=== PATIENT | female | born 1970 | race African-American/Black ===

== ENCOUNTER 2016-10-13 17:04 | Emergency (ER) | payer OTHER ==
[~2016-10-13] VITALS: Ht 165.1 cm; Wt 78.5 kg
[~2016-10-13 17:04] MED LIST: ATARAX25 MG ORAL; CIPRO500 MG PO; DIPHENHYDRAMINE25 M1 ORAL; HYDROCORTISONE28 G5 TP; IBUPROFEN600 MG ORAL; KEFLEX500 MG ORAL; NKM; NORCO 5-325 TA1 EACH ORAL; PREDNISONE20 MG ORAL; PREDNISONE50 MG ORAL; PROVENTIL *; TRAMADOL HCL50 MG ORAL
[2016-10-13 17:37] VITALS: BP 132/86
[2016-10-13] MEDS ORDERED: PredniSONE 20mg tab ORAL ONE (17:45)
[2016-10-13] MEDS ORDERED: ATARAX25 MG ORAL (18:17)
[2016-10-13] MEDS ORDERED: PREDNISONE20 MG ORAL (18:17)
[2016-10-13 18:46] VITALS: BP 132/86
--- NOTE | 2016-10-15 07:38 | Emergency Room Report ---
History of Present Illness General Chief Complaint: General Complaint Source: Patient Present Illness HPI Patient is a 46 female presented after having left-sided facial swelling as well as extremity swelling. The patient noticed acute onset of itching to the left side her face as well as to her right leg. Patient had reported being bitten by a spider. She denies any fever. She reported having moderate itching to the area. Allergies: Coded Allergies: ERYTHROMYCIN BASE (Verified Allergy, Unknown, 02/23/14) Patient History Past Medical History: see triage record Now: No Reviewed Nursing Documentation: PMH: Agreed, PSxH: Agreed Nursing Documentation-PMH Past Medical History: No History, Except For Hx Hypertension: Yes Hx Asthma: Yes Review of Systems All Other Systems: negative except mentioned in HPI Physical Exam Vital Signs Date Time Temp Pulse Resp B/P Pulse Ox O2 Delivery O2 Flow Rate FiO2 10/13/16 17:15 98.1 89 15 136/83 98 Room Air General Appearance: well appearing, no apparent distress, alert, GCS 15, non- toxic Head: normocephalic, atraumatic ENT: hearing grossly normal, normal voice Neck: full range of motion, supple Respiratory: no respiratory distress, speaking full sentences Cardiovascular #1: normal inspection, normal peripheral pulses Gastrointestinal: normal inspection, normal bowel sounds, non tender Musculoskeletal: normal inspection, back normal, no calf tenderness Neurologic: normal inspection, alert, oriented x3, responsive, motor vehicle clerk III-XII nml as tested, normal gait Psychiatric: mood/affect normal Skin: other - swelling to left side of face, right leg no erythema Medical Decision Making Diagnostic Impression: Primary Impression: Insect bite - wound Additional Impression: Allergic reaction ER Course Patient presented for skin rash. Differential diagnosis included wasn't limited to cellulitis, allergic reaction, insect bite, angioedema, erythema multiforme. Patient's benign exam and does not appear to require any further imaging or laboratory testing at this time. The patient was given prednisone as well as H2 mari. The patient is advised to follow up with primary care doctor in 1-2 days. Patient is advised to return if any worsening condition or if any changes in status that are concerning. Last Vital Signs Date Time Temp Pulse Resp B/P Pulse Ox O2 Delivery O2 Flow Rate FiO2 10/13/16 18:46 98.3 92 17 132/86 99 Room Air Status: improved Disposition: HOME, SELF-CARE Condition: Stable Scripts Hydroxyzine HCl (Hydroxyzine HCl) 25 Mg Tablet 25 MG ORAL FOUR TIMES A DAY, #30 TAB Prov: Gavin Vences 10/13/16 Prednisone* (PREDNISONE*) 20 Mg Tablet 60 MG ORAL DAILY, #12 TAB Prov: Gavin Vences 10/13/16 Referrals: [facility] [place] (PCP) Patient Instructions: Insect Bite Gavin Vences Oct 15, 2016 07:38
== END 2016-10-13 19:30 | disposition home or self-care (01) ==
LOC: EMR 19:10
DX: S00.86XA Insect bite (nonvenomous) of other part of head, initial encounter (principal); T78.40XA Allergy, unspecified, initial encounter; I10 Essential (primary) hypertension; J45.909 Unspecified asthma, uncomplicated; Z88.1 Allergy status to other antibiotic agents; W57.XXXA Bitten or stung by nonvenomous insect and other nonvenomous arthropods, initial encounter; Y92.9 Unspecified place or not applicable; Y99.8 Other external cause status
CPT/HCPCS: 81025; 99282

== ENCOUNTER 2017-06-27 21:28 | Emergency (ER) | payer BC, OTHER ==
[~2017-06-27] VITALS: Ht 165.1 cm; Wt 81.6 kg
[2017-06-27] MEDS ORDERED: ATIVAN0.5 MG ORAL (22:21)
--- NOTE | 2017-06-27 22:22 | Emergency Room Report ---
History of Present Illness General Chief Complaint: General Complaint Source: Patient Present Illness HPI Is a 47-year-old female with history hypertension. Her Dr. taken off of blood pressure medication because her blood pressures been normal. Patient resides with chief complaint of headache blurry vision. She is under a lot of stress lately. Complaining of feeling sad because her mom around this time last year. Unable to sleep much. No fever chills. no nausea vomiting. She thought that her blood pressure may be elevated. Allergies: Coded Allergies: ERYTHROMYCIN BASE (Verified Allergy, Unknown, 02/23/14) Patient History Past Medical History: see triage record, old chart reviewed Past Surgical History: other Pertinent Family History: none Social History: Denies: smoking Last Menstrual Period: 06/12/17 Now: No Reviewed Nursing Documentation: PMH: Agreed, PSxH: Agreed Nursing Documentation-PMH Past Medical History: No History, Except For Hx Hypertension: Yes Hx Asthma: Yes Review of Systems Eye: Denies: eye pain, blurred vision ENT: Denies: ear pain, nose congestion, throat swelling Respiratory: Denies: cough, shortness of breath Cardiovascular: Denies: chest pain, palpitations Gastrointestinal: Denies: abdominal pain, diarrhea, nausea, vomiting Musculoskeletal: Denies: back pain, joint pain Skin: Denies: rash Neurological: Denies: headache, numbness Endocrine: Denies: increased thirst, increased urine Hematologic/Lymphatic: Denies: easy bruising All Other Systems: negative except mentioned in HPI Physical Exam Vital Signs Date Time Temp Pulse Resp B/P (MAP) Pulse Ox O2 Delivery O2 Flow Rate FiO2 06/27/17 21:32 97.9 85 17 153/97 98 Room Air vitals with slight elevation of high blood pressure Sp02 EP Interpretation: reviewed, normal General Appearance: well appearing, no apparent distress, alert Head: normocephalic, atraumatic Eyes: bilateral eye PERRL, bilateral eye EOMI ENT: hearing grossly normal, normal pharynx Neck: full range of motion, supple, no meningismus Respiratory: chest non-tender, lungs clear, normal breath sounds Cardiovascular #1: regular rate, rhythm, no murmur Gastrointestinal: normal bowel sounds, non tender, no mass, no organomegaly, no bruit, non-distended Musculoskeletal: back normal, gait/station normal, normal range of motion Psychiatric: anxious - Crying Skin: warm/dry Medical Decision Making Diagnostic Impression: Primary Impression: Stress and adjustment reaction ER Course Patient with elevated blood pressure secondary to stress reaction. No evidence of suicidal thoughts or homicidal thought. No fracture 5150. No evidence of end organ damage. We'll discharge home. Last Vital Signs Date Time Temp Pulse Resp B/P (MAP) Pulse Ox O2 Delivery O2 Flow Rate FiO2 06/27/17 21:32 97.9 85 17 153/97 98 Room Air Status: improved Disposition: HOME, SELF-CARE Condition: Stable Scripts Lorazepam* (ATIVAN*) 0.5 Mg Tablet 0.5 MG ORAL THREE TIMES A DAY, #30 TAB Prov: WILMER DELEON M.D. 06/27/17 Referrals: JOSÉ ANTONIO CARTY M.D. (PCP) Additional Instructions: Followup with your DrDarius in 7 days. Return if symptom worsen. WILMER DELEON M.D. Jun 27, 2017 22:22
[2017-06-27 22:26] VITALS: BP 153/97
== END 2017-06-27 22:27 | disposition home or self-care (01) ==
LOC: EMR 21:57
DX: F43.29 Adjustment disorder with other symptoms (principal); I10 Essential (primary) hypertension; J45.909 Unspecified asthma, uncomplicated
CPT/HCPCS: 99283

== ENCOUNTER 2017-08-30 11:27 | Emergency (ER) | payer BC ==
[~2017-08-30] VITALS: Ht 165.1 cm; Wt 81.6 kg
[~2017-08-30 11:27] MED LIST changes: +ATIVAN0.5 MG ORAL
[2017-08-30] MEDS ORDERED: ALBUTEROL2.5 MG/3 M INH (11:39)
[2017-08-30] MEDS ORDERED: Sodium Chloride 500ML 500 ML IV ONE (11:48)
[2017-08-30] MEDS ORDERED: Morphine Sulfate 4mg/ml Inj IVP ONE (12:00)
[2017-08-30] MEDS ORDERED: Albuterol ud Inhalation HHN ONE ×2 (12:00→13:30)
[2017-08-30] MEDS ORDERED: LORazepam Inj 2mg/ml 1ml IV ONE (12:00)
[2017-08-30] MEDS ORDERED: Ipratropium 0.02% Inh Soln 2.5ml UD HHN ONE ×2 (12:00→13:30)
[2017-08-30] MEDS ORDERED: Solu-MEDROL 125mg Inj IVP ONE (12:00)
[2017-08-30 12:40] LABS: ANION GAP 9 mmol/L (5-15); CALCIUM 8.9 MG/DL (8.5-10.1); CARBON DIOXIDE 26 MMOL/L (21-32); CHLORIDE 103 MMOL/L (98-107); CREATININE 0.8 MG/DL (0.55-1.30); GLOMERULAR FILTRATION RATE > 60 mL/min (>60); SODIUM 138 MMOL/L (136-145)
[2017-08-30 12:50] LABS: MEAN CORPUSCULAR HEMOGLOBIN 30.1 PG (27.0-31.0); MEAN CORPUSCULAR VOLUME 94 FL (80-99); MEAN PLATELET VOLUME 6.4 FL (6.5-10.1); PLATELET COUNT 253 K/UL (150-450); RED BLOOD COUNT 4.37 M/UL (4.20-5.40); RED CELL DISTRIBUTION WIDTH 13.4 % (11.6-14.8); WHITE BLOOD COUNT 3.1 K/UL (4.8-10.8)
[2017-08-30 12:53] LABS: ALANINE AMINOTRANSFERASE 21 U/L (12-78); ASPARTATE AMINO TRANSFERASE 15 U/L (15-37); CKMB 1.2 NG/ML (0.0-3.6); LIPASE 83 U/L (73-393); TOTAL PROTEIN 7.9 G/DL (6.4-8.2)
[2017-08-30 13:13] VITALS: BP 128/79
[2017-08-30 13:25] LABS: BAND NEUTROPHILS % (MANUAL) 0 % (0-8); BASOPHILS % (MANUAL) 0 % (0-2); EOSINOPHILS % (MANUAL) 1 % (0-3); LYMPHOCYTES % (MANUAL) 46 % (20-45); NEUTROPHILS % (MANUAL) 45 % (45-75); PLATELET ESTIMATE ADEQUATE; PLATELET MORPHOLOGY NORMAL; TOTAL CELLS COUNTED 100
[2017-08-30] MEDS ORDERED: ROBITUSSIN COU237 M1 PO (13:44)
[2017-08-30] MEDS ORDERED: PREDNISONE20 MG ORAL (13:44)
[2017-08-30 14:09] VITALS: BP 151/76
[2017-08-30 14:12] VITALS: BP 151/76
--- NOTE | 2017-08-30 14:20 | Emergency Room Report ---
History of Present Illness General Chief Complaint: Dyspnea/Respdistress Source: Patient Present Illness HPI Patient presents with complaints of asthma exacerbation and cough Symptoms ongoing for the past several days Denies any chest pain Denies any vomiting or diarrhea Questionable low-grade fevers Patient reports that her albuterol at home was not helping and presents to the ER Denies any pleurisy denies any leg swelling Allergies: Coded Allergies: ERYTHROMYCIN BASE (Verified Allergy, Unknown, 02/23/14) PENICILLINS (Verified Allergy, Unknown, 08/30/17) PT STATES IT GIVES HER A YEAST INFECTION. Patient History Past Medical History: see triage record Pertinent Family History: none Last Menstrual Period: 08/15/17 Now: No Reviewed Nursing Documentation: PMH: Agreed, PSxH: Agreed Nursing Documentation-PMH Hx Hypertension: Yes Hx Asthma: Yes Review of Systems All Other Systems: negative except mentioned in HPI Physical Exam Vital Signs Date Time Temp Pulse Resp B/P (MAP) Pulse Ox O2 Delivery O2 Flow Rate FiO2 08/30/17 11:33 98.4 93 20 117/85 97 Room Air Sp02 EP Interpretation: reviewed, normal General Appearance: no apparent distress Head: normocephalic, atraumatic Eyes: bilateral eye PERRL, bilateral eye EOMI ENT: hearing grossly normal, normal pharynx, TMs + canals normal, uvula midline Neck: full range of motion, supple, no meningismus, no bony tend Respiratory: no respiratory distress, no retraction, no accessory muscle use, wheezing - bilaterally Cardiovascular #1: normal peripheral pulses, regular rate, rhythm, no edema, no gallop, no JVD, no murmur Gastrointestinal: normal bowel sounds, non tender, soft, no mass, no organomegaly, non-distended, no guarding, no hernia, no pulsatile mass, no rebound Genitourinary: no CVA tenderness Musculoskeletal: normal inspection Neurologic: oriented x3, responsive, traffic lieutenant III-XII nml as tested, motor strength/ tone normal, sensory intact Psychiatric: mood/affect normal Skin: normal color, no rash, warm/dry, palpation normal Lymphatic: normal inspection, no adenopathy Medical Decision Making Diagnostic Impression: Primary Impression: uri Additional Impression: asthma flare ER Course Patient is a fairly complex patient with multiple differential to consideration including but not limited to cardiac cardiopulmonary and vascular emergencies Patient appears to have more asthma and URI type symptoms X-ray imaging and blood work are appropriate Given the patient's initial wheezing and discomfort I felt the patient was candidate for inpatient admission and further breathing treatments Along with further investigation of differential diagnoses However the patient at this time denies and refuses admission reports that she feels significantly better and states that she will return with any changes Labs Test 08/30/17 12:13 White Blood Count 3.1 K/UL (4.8-10.8) Red Blood Count 4.37 M/UL (4.20-5.40) Hemoglobin 13.2 G/DL (12.0-16.0) Hematocrit 41.2 % (37.0-47.0) Mean Corpuscular Volume 94 FL (80-99) Mean Corpuscular Hemoglobin 30.1 PG (27.0-31.0) Mean Corpuscular Hemoglobin Concent 32.0 G/DL (32.0-36.0) Red Cell Distribution Width 13.4 % (11.6-14.8) Platelet Count 253 K/UL (150-450) Mean Platelet Volume 6.4 FL (6.5-10.1) Neutrophils (%) (Auto) % (45.0-75.0) Lymphocytes (%) (Auto) % (20.0-45.0) Monocytes (%) (Auto) % (1.0-10.0) Eosinophils (%) (Auto) % (0.0-3.0) Basophils (%) (Auto) % (0.0-2.0) Differential Total Cells Counted 100 Neutrophils % (Manual) 45 % (45-75) Lymphocytes % (Manual) 46 % (20-45) Monocytes % (Manual) 8 % (1-10) Eosinophils % (Manual) 1 % (0-3) Basophils % (Manual) 0 % (0-2) Band Neutrophils 0 % (0-8) Platelet Estimate Adequate Platelet Morphology Normal Red Blood Cell Morphology Normal Sodium Level 138 MMOL/L (136-145) Potassium Level 4.0 MMOL/L (3.5-5.1) Chloride Level 103 MMOL/L (98-107) Carbon Dioxide Level 26 MMOL/L (21-32) Anion Gap 9 mmol/L (5-15) Blood Urea Nitrogen 9 mg/dL (7-18) Creatinine 0.8 MG/DL (0.55-1.30) Estimat Glomerular Filtration Rate > 60 mL/min (>60) Glucose Level 99 MG/DL (74-106) Calcium Level 8.9 MG/DL (8.5-10.1) Total Bilirubin 0.2 MG/DL (0.2-1.0) Aspartate Amino Transf (AST/SGOT) 15 U/L (15-37) Alanine Aminotransferase (ALT/SGPT) 21 U/L (12-78) Alkaline Phosphatase 65 U/L (46-116) Total Creatine Kinase 95 U/L (26-308) Creatine Kinase MB 1.2 NG/ML (0.0-3.6) Creatine Kinase MB Relative Index 1.2 Troponin I 0.000 ng/mL (0.000-0.056) Pro-B-Type Natriuretic Peptide 24 pg/mL (0-125) Total Protein 7.9 G/DL (6.4-8.2) Albumin 4.0 G/DL (3.4-5.0) Globulin 3.9 g/dL Albumin/Globulin Ratio 1.0 (1.0-2.7) Lipase 83 U/L (73-393) Rhythm Strip Diag. Results EP Interpretation: yes Rate: 88 Rhythm: NSR, no PVC's, no ectopy Chest X-Ray Diagnostic Results Chest X-Ray Diagnostic Results : Chest X-Ray Ordered: Yes # of Views/Limited/Complete: 1 View Indication: Shortness of Breath EP Interpretation: Yes Interpretation: no consolidation, no effusion, no pneumothorax, no acute cardiopulmonary disease Impression: No acute disease Electronically Signed by: Gypsy Bajwa DO Last Vital Signs Date Time Temp Pulse Resp B/P (MAP) Pulse Ox O2 Delivery O2 Flow Rate FiO2 08/30/17 14:12 99 15 100 Room Air 08/30/17 14:12 98.4 151/76 Status: improved Disposition: HOME, SELF-CARE Condition: Improved Scripts Guaifenesin/Dextromethorphan (ROBITUSSIN COUGH-CHEST DM LIQ) 237 Ml Liquid 10 ML PO BID for 5 Days, ML Prov: GYPSY BAJWA D.O. 08/30/17 Prednisone* (PREDNISONE*) 20 Mg Tablet 20 MG ORAL BID for 5 Days, #5 TAB Prov: GYPSY BAJWA D.O. 08/30/17 Referrals: NON PHYSICIAN (PCP) Patient Instructions: Asthma, Adult, Upper Respiratory Infection, Adult, Easy- to-Read Additional Instructions: Patient is provided with the discharge instructions notified to follow up with primary doctor in the next 2-3 days otherwise return to the er with any worsening symptoms. Please note that this report is being documented using [employer] technology. This can lead to erroneous entry secondary to incorrect interpretation by the dictating instrument. GYPSY BAJWA D.O. Aug 30, 2017 14:20
--- NOTE | 2017-08-31 10:56 | Diagnostic Imaging Report ---
Indication: Shortness of breath Technique: XRAY CHEST 1 V Comparison: 07/23/14 Findings: The cardiomediastinal silhouette is within normal limits. There is no focal consolidation, pneumothorax or pleural effusion. Osseous structures demonstrate no acute abnormality. Impression: No acute cardiopulmonary disease.
--- NOTE | 2017-08-31 15:30 | Cardiology Report ---
APPROVED REPORT EKG Measurement Heart [id number] Normal sinus rhythm Normal ECG
== END 2017-08-30 14:18 | disposition home or self-care (01) ==
LOC: EMR 11:51
DX: J06.9 Acute upper respiratory infection, unspecified (principal); J45.909 Unspecified asthma, uncomplicated; I10 Essential (primary) hypertension; Z88.0 Allergy status to penicillin; Z88.1 Allergy status to other antibiotic agents
CPT/HCPCS: 36415; 71010; 80053; 82550; 82553; 83690; 83880; 84484; 85007; 85025; 87040; 93005; 94640; 94664; 96374; 96375; 99284; J2270; J2405; J2930; J7040

== ENCOUNTER 2020-04-09 12:16 | Emergency (ER) | payer BC, MEDICAID, OTHER ==
[~2020-04-09] VITALS: Ht 165.1 cm; Wt 86.2 kg
[~2020-04-09 12:16] MED LIST changes: +ALBUTEROL2.5 MG/3 M INH; +ROBITUSSIN COU237 M1 PO
[2020-04-09 12:33] VITALS: BP 141/94
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
[2020-04-09] MEDS ORDERED: Tetanus/Diptheria/Pertussis IM ONE (13:00)
[2020-04-09] MEDS ORDERED: HYDROcodone/Acetamin 5/325 tab PO ONE (13:00)
--- NOTE | 2020-04-09 13:09 | NUR ---
ED Nurse Note: patient was taken to CT
--- NOTE | 2020-04-09 13:24 | NUR ---
ED Nurse Note: patient back from CT
--- NOTE | 2020-04-09 13:44 | Diagnostic Imaging Report ---
EXAM: CT Head Without Intravenous Contrast CLINICAL HISTORY: Headache TECHNIQUE: Axial computed tomography images of the head/brain without intravenous contrast. CTDI is 68.70 mGy and DLP is 1410.60 mGy-cm. One or more of the following dose reduction techniques were used: automated exposure control, adjustment of the mA and/or kV according to patient size, use of iterative reconstruction technique. Coronal reformatted images were created and reviewed. COMPARISON: Maxillofacial CT obtained concurrently. Noncontrast head CT dated 03/05/16. FINDINGS: Brain: Subcentimeter hypodensity in the anterior limb of the right internal capsule, likely a remote lacunar infarct. No evidence of acute intracranial hemorrhage. No significant white matter disease. No edema. No mass effect or midline shift. Ventricles: Unremarkable. No ventriculomegaly. Bones/joints: Unremarkable. No depressed skull fracture. Soft tissues: Left periorbital soft tissue swelling. Sinuses: Partial opacification of the left-sided ethmoid air cells. Remaining visualized paranasal sinuses are clear. No sinus air-fluid levels. Mastoid air cells: Unremarkable as visualized. No mastoid effusion. IMPRESSION: 1. No acute intracranial findings. 2. Left periorbital soft tissue swelling. 3. Subcentimeter hypodensity in the anterior limb of the right internal capsule, likely a remote lacunar infarct.
--- NOTE | 2020-04-09 13:46 | Diagnostic Imaging Report ---
EXAM: CT Maxillofacial Without Intravenous Contrast CLINICAL HISTORY: H/A TECHNIQUE: Axial computed tomography images of the face without intravenous contrast. CTDI is 68.70 mGy and DLP is 1410.60 mGy-cm. One or more of the following dose reduction techniques were used: automated exposure control, adjustment of the mA and/or kV according to patient size, use of iterative reconstruction technique. Coronal reformatted images were created and reviewed. COMPARISON: Noncontrast head CT obtained concurrently FINDINGS: Bones/joints: No acute fracture. Soft tissues: Left periorbital soft tissue swelling. Orbits: Bony orbits appear intact. Bilateral globes and intraconal soft tissues appear unremarkable. Sinuses: Partial mucosal opacification throughout the left ethmoid air cells. Remaining visualized paranasal sinuses appear clear. No sinus air-fluid levels. IMPRESSION: Left periorbital soft tissue swelling. No facial bone fractures.
[2020-04-09] MEDS ORDERED: BACITRACIN15 GM TOPIC ×2 (14:29→15:37)
[2020-04-09] MEDS ORDERED: HYDROCHLOROTH12.5 MG ORAL ×2 (14:29→15:37)
[2020-04-09] MEDS ORDERED: ACETAMINOPHEN-1 EAC1 ORAL ×3 (14:29→15:40)
[2020-04-09 14:35] VITALS: BP 141/94
--- NOTE | 2020-04-09 14:42 | NUR ---
ED Nurse Note: Pt cleared by health care Provider for discharge. DC instructions/prescription was given and explained to pt and verbalized understanding of teachings. All medical deviecs such as ID band removed. Pt is AAO x4, ambulatory and left with all personal belongings.
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
== END 2020-04-09 14:35 | disposition home or self-care (01) ==
LOC: EMR 14:23
DX: S05.12XA Contusion of eyeball and orbital tissues, left eye, initial encounter (principal); S00.81XA Abrasion of other part of head, initial encounter; S09.90XA Unspecified injury of head, initial encounter; X08.8XXA Exposure to other specified smoke, fire and flames, initial encounter; Y92.9 Unspecified place or not applicable; Z88.0 Allergy status to penicillin; I10 Essential (primary) hypertension; Z23 Encounter for immunization
CPT/HCPCS: 70450; 70486; 90471; 90715; Z7502; 99284